=== PATIENT | male | born 1990 | race Caucasian/White ===

== ENCOUNTER → 2017-12-02 | Outpatient (CLI) | payer BC | LOC: BRMIMAGING 16:08 | PROVIDERS: ATTEND Specialist | DX: S69.91XA Unspecified injury of right wrist, hand and finger(s), initial encounter (principal); S62.001D Unspecified fracture of navicular [scaphoid] bone of right wrist, subsequent encounter for fracture with routine healing | CPT/HCPCS: 73130-PO ==